=== PATIENT | male | born 1955 | race Caucasian/White ===

== ENCOUNTER 2018-04-09 11:20 | Day surgery (SDC) | payer OTHER ==
[~2018-04-09] VITALS: Ht 182.9 cm; Wt 90.9 kg
--- NOTE | ~2018-04-09 | OP ---
PATIENT NAME: SEAN CRUZ MEDICAL RECORD: [id number] :55 LOCATION:[facility] ADMISSION DATE: SURGEON: NANCY CAABN DO DATE OF OPERATION: 04/09/2018 PROCEDURE: Colonoscopy with polypectomy. INDICATIONS FOR PROCEDURE: Screening for colorectal cancer. The patient's last colonoscopy was 01/10/2015 and he had a tubular adenomatous polyp removed at that time. SCOPE: Olympus video pediatric colonoscope. MEDICATIONS: Propofol 500 mg IV per anesthesia. WITHDRAWAL TIME: 15 minutes. ESTIMATED BLOOD LOSS: Minimal. COMPLICATIONS: None. FINDINGS: Informed consent was given. The patient was made comfortable with the above medication. After reaching an adequate level of sedation by slow IV push, the patient was placed on his left side. A digital rectal examination was performed and revealed a slightly enlarged prostate. The endoscope was then advanced under direct visualization through the rectum to the cecum and terminal ileum. The appendiceal orifice was visualized. In the cecum, there were 3 separate small, benign appearing, sessile polyps which ranged in size from 2-3 mm in diameter. They were removed using hot forceps in 1 piece and completely retrieved. In the descending colon, there was another polyp which was small and benign-appearing and sessile. It was removed using a hot forceps in 1 piece and completely retrieved. Retroflexion was performed in the rectum with a normal appearing rectal wall. The endoscope was then withdrawn from the patient. The patient tolerated the procedure well and there were no complications. IMPRESSION: Four small and benign-appearing sessile polyps as described above removed using hot forceps. PLAN AND RECOMMENDATIONS: 1. Discharge home when recovery parameters are met. 2. Follow up biopsy specimen results. 3. Continue current diet. 4. Continue current medications. 5. Recall colonoscopy in 5 years for continued surveillance based on a personal history of polyps. TRANSINT:[id number] Voice Confirmation ID: [id number] DOCUMENT ID: [id number] OPERATIVE REPORT [id number] SEAN CRUZNANCY LEE DO CC: [id number] DICTATION DATE: 04/09/18 1400 TALENT ACQUISITION SPECIALIST: 04/09/[address] [facility] [address] [place] [address]
[2018-04-09] MEDS ORDERED: LEVOXYL175 MCG PO (12:35)
[2018-04-09] MEDS ORDERED: VASOTEC20 MG PO (12:36)
[2018-04-09] MEDS ORDERED: NOVOLOG100 U/M1 SC (12:38)
[2018-04-09] MEDS ORDERED: LEVEMIR100 U/M1 SC (12:40)
[2018-04-09] MEDS ORDERED: BAYER CHEWABLE81 MG PO (12:41)
[2018-04-09 12:49] VITALS: BP 133/64; Ht 182.9 cm; Wt 90.9 kg
[2018-04-09 13:55] LABS: BASOPHILS 1.3 % (0-2); EOSINOPHILS 2.7 % (0-7); HEMATOCRIT 40.4 % (42.0-54.0); HEMOGLOBIN 14.1 g/dL (13.5-17.5); LYMPHOCYTES 32.2 % (15-50); MCH 32.4 pg (26.0-34.0); MCHC 34.9 g/dL (31.0-37.0); MCV 92.9 fL (80.0-100.0); MEAN PLATELET VOLUME 10.6 fL (7.4-10.4); MONOCYTES 9.5 % (2-11); NEUTROPHILS 54.3 % (40-80); PLATELET COUNT 170 10x3/uL (130-400); RBC 4.35 10x6/uL (4.20-6.10); WBC 4.5 10x3/uL (4.8-10.8)
[2018-04-09 14:06] LABS: ANION GAP 10.4 mmol/L (8-16); CALCIUM 8.6 mg/dL (8.5-10.1); CREATININE - SERUM 1.1 mg/dL (0.6-1.3); POTASSIUM - SERUM 4.4 mmol/L (3.5-5.1)
== END 2018-04-09 14:55 | disposition home or self-care (01) ==
LOC: D.OPS 11:20
PROVIDERS: Anesthesiology
DX: Z12.11 Encounter for screening for malignant neoplasm of colon (principal); K63.5 Polyp of colon; Z86.010 Personal history of colon polyps; Z01.812 Encounter for preprocedural laboratory examination